=== PATIENT | female | born 1990 | race Caucasian/White ===

== ENCOUNTER 2021-05-27 20:51 | Emergency (ER) | payer SELFPAY ==
[~2021-05-27] VITALS: Ht 152.4 cm; Wt 64.0 kg
[2021-05-27] MEDS ORDERED: CYCLOBENZAPRINE 10MG TABLET PO ONE (22:15)
[2021-05-27] MEDS ORDERED: KETOROLAC 15MG/ML VIAL IM ONE (22:15)
[2021-05-27] MEDS ORDERED: CYCL25PO15 MT (22:17)
[2021-05-27 22:25] VITALS: BP 121/69
[2021-05-27] MEDS ORDERED: CYCL7.5T25 MT (23:30)
== END 2021-05-27 23:25 | disposition home or self-care (01) ==
LOC: ER 20:51
DX: M54.2 Cervicalgia (principal); Z90.49 Acquired absence of other specified parts of digestive tract
CPT/HCPCS: 81025; 96372; 99283; J1885